=== PATIENT | male | born 1980 | race Caucasian/White ===

== ENCOUNTER → 2021-02-04 08:45 | Outpatient (CLI) | payer OTHER, SELFPAY ==
[2021-02-04 09:41] LABS: Absolute Lymphocyte Count 1.44 X10^3/uL (0.83-4.51); Absolute Neutrophil Count 2.6 X10^3/uL (2.0-7.7); Basophil# 0.02 X10^3/uL; Basophil% 0.4 % (0-1); Eosinophil# 0.12 X10^3/uL; Eosinophils% 2.6 % (0-5); Hematocrit 48.3 % (40-54); Lymphocyte # 1.44 X10^3/ul (0.83-4.51); Lymphocyte % 30.7 % (19-41); Mean Corp Hgb Conc 33.1 g/dL (32-36); Mean Corpuscular Hgb 31.6 pg (27.0-32.0); Mean Corpuscular Volume 95.5 fL (80-94); Mean Platelet Vol. 11.4 fl (6.2-12.0); Monocyte# 0.52 X10^3/uL; Monocyte% 11.1 % (0-10); NRBC Flagged by Analyzer 0 % (0-5); Neutrophil # 2.59 X10^3/uL (2.7-7.7); Neutrophil % 55.2 % (47-70); Platelet Count 179 K/mm3 (150-450); RBC Distribution Width CV 12.8 % (11.6-14.6); RBC Distribution Width SD 45.1 fl (35.1-43.9); Red Blood Count 5.06 M/mm3 (4.6-6.2); White Blood Count 4.7 K/mm3 (4.4-11.0)
[2021-02-04 13:29] LABS: ALB/GLOB Ratio 0.9 RATIO (0.9-2.4); AST(SGOT) 34 U/L (15-37); Alanine Aminotransfer ALT/SGPT 65 U/L (16-61); Albumin, Serum 3.7 g/dL (3.2-5.0); Alkaline Phosphatase 84 U/L (45-117); Anion Gap 7 (5-15); BUN 34 mg/dL (7-18); BUN/Creat Ratio 28.1 RATIO (10-20); Calcium,Total 9.1 mg/dL (8.5-10.1); Chloride 101 mmol/L (98-107); Cholesterol 152 mg/dL (200); Creatinine, Serum 1.21 mg/dL (0.70-1.30); EST Glomerular Filtration Rate 70 mL/min (>60); Est Glom Filt Rate - Afr Amer 85 mL/min (>60); Estradiol 46.5 pg/mL; Glucose 80 mg/dL (74-106); High Density Lipoprotein 61 mg/dL; PSA,Total- Diagnostic 0.47 ng/mL (0.0-4.0); Potassium 4.2 mmol/L (3.5-5.1); Protein, Total 7.7 g/dL (6.4-8.2); Sodium Level 137 mmol/L (136-145); Thyroid Stim Hormone (TSH) 0.93 uIU/mL (0.358-3.74); Triglycerides 64 mg/dL; Very Low Density Lipoprotein 13 mg/dL (5-40)
== END ==
DX: Z00.00 Encounter for general adult medical examination without abnormal findings (principal)
CPT/HCPCS: 80053; 80061; 82670; 84153; 84402; 84403; 84443; 85025

== ENCOUNTER → 2021-08-06 | Outpatient (CLI) | payer OTHER, SELFPAY ==
[2021-08-06 10:11] LABS: Absolute Lymphocyte Count 1.31 X10^3/uL (0.83-4.51); Absolute Neutrophil Count 1.9 X10^3/uL (2.0-7.7); Basophil# 0.01 X10^3/uL; Basophil% 0.3 % (0-1); Eosinophil# 0.07 X10^3/uL; Eosinophils% 1.9 % (0-5); Hematocrit 46.1 % (40-54); Hemoglobin 15.8 g/dL (13.0-16.5); Lymphocyte # 1.31 X10^3/ul (0.83-4.51); Lymphocyte % 35.8 % (19-41); Mean Corp Hgb Conc 34.3 g/dL (32-36); Mean Corpuscular Volume 93.3 fL (80-94); Mean Platelet Vol. 10.3 fl (6.2-12.0); Monocyte# 0.39 X10^3/uL; Monocyte% 10.7 % (0-10); NRBC Flagged by Analyzer 0 % (0-5); Neutrophil # 1.87 X10^3/uL (2.7-7.7); Platelet Count 172 K/mm3 (150-450); RBC Distribution Width CV 11.6 % (11.6-14.6); RBC Distribution Width SD 39.8 fl (35.1-43.9); Red Blood Count 4.94 M/mm3 (4.6-6.2); White Blood Count 3.7 K/mm3 (4.4-11.0)
[2021-08-06 10:41] LABS: AST(SGOT) 26 U/L (15-37); Alanine Aminotransfer ALT/SGPT 47 U/L (16-61); Albumin, Serum 3.8 g/dL (3.2-5.0); Alkaline Phosphatase 65 U/L (45-117); Anion Gap 3 (5-15); BUN 22 mg/dL (7-18); BUN/Creat Ratio 16.5 RATIO (10-20); Calcium,Total 9.3 mg/dL (8.5-10.1); Chloride 102 mmol/L (98-107); Cholesterol 160 mg/dL (200); Creatinine, Serum 1.33 mg/dL (0.70-1.30); EST Glomerular Filtration Rate 63 mL/min (>60); Est Glom Filt Rate - Afr Amer 76 mL/min (>60); Estradiol 29.7 pg/mL; Globulin 3.9 g/dL (2.2-4.2); Glucose 97 mg/dL (74-106); High Density Lipoprotein 67 mg/dL; Potassium 4.2 mmol/L (3.5-5.1); Protein, Total 7.7 g/dL (6.4-8.2); Sodium Level 136 mmol/L (136-145); Thyroid Stim Hormone (TSH) 0.91 uIU/mL (0.358-3.74); Triglycerides 40 mg/dL; Very Low Density Lipoprotein 8 mg/dL (5-40)
[2021-08-08 20:40] LABS: Insulin Like Growth Factor 248 ng/mL (84-270)
== END | disposition home or self-care (01) ==
DX: Z00.00 Encounter for general adult medical examination without abnormal findings (principal)
CPT/HCPCS: 80053; 80061; 82670; 84153; 84305; 84403; 84443; 85025; G0103

== ENCOUNTER 2022-01-28 08:48 | Outpatient (CLI) | payer OTHER, SELFPAY ==
[2022-01-28 09:03] LABS: Absolute Lymphocyte Count 1.06 X10^3/uL (0.83-4.51); Absolute Neutrophil Count 3.5 X10^3/uL (2.0-7.7); Basophil# 0.02 X10^3/uL; Basophil% 0.4 % (0-1); Eosinophil# 0.05 X10^3/uL; Hematocrit 47.9 % (40-54); Hemoglobin 16.6 g/dL (13.0-16.5); Lymphocyte # 1.06 X10^3/ul (0.83-4.51); Lymphocyte % 20.9 % (19-41); Mean Corp Hgb Conc 34.7 g/dL (32-36); Mean Corpuscular Hgb 32.4 pg (27.0-32.0); Mean Corpuscular Volume 93.6 fL (80-94); Mean Platelet Vol. 10.9 fl (6.2-12.0); Monocyte# 0.42 X10^3/uL; Monocyte% 8.3 % (0-10); NRBC Flagged by Analyzer 0 % (0-5); Neutrophil # 3.52 X10^3/uL (2.7-7.7); Neutrophil % 69.4 % (47-70); Platelet Count 179 K/mm3 (150-450); RBC Distribution Width CV 11.9 % (11.6-14.6); RBC Distribution Width SD 41.4 fl (35.1-43.9); Red Blood Count 5.12 M/mm3 (4.6-6.2); White Blood Count 5.1 K/mm3 (4.4-11.0)
[2022-01-28 09:24] LABS: Vitamin D,25 Hydroxy 39.2 ng/mL
[2022-01-28 09:32] LABS: ALB/GLOB Ratio 0.9 RATIO (0.9-2.4); AST(SGOT) 28 U/L (15-37); Alanine Aminotransfer ALT/SGPT 44 U/L (16-61); Albumin, Serum 3.8 g/dL (3.2-5.0); Alkaline Phosphatase 70 U/L (45-117); Anion Gap 4 (5-15); BUN 23 mg/dL (7-18); BUN/Creat Ratio 18.3 RATIO (10-20); Calcium,Total 9.3 mg/dL (8.5-10.1); Chloride 103 mmol/L (98-107); Cholesterol 150 mg/dL (200); Creatinine, Serum 1.26 mg/dL (0.70-1.30); EST Glomerular Filtration Rate 67 mL/min (>60); Est Glom Filt Rate - Afr Amer 81 mL/min (>60); Estradiol 53.1 pg/mL; Globulin 4.4 g/dL (2.2-4.2); Glucose 99 mg/dL (74-106); High Density Lipoprotein 69 mg/dL; Potassium 4.2 mmol/L (3.5-5.1); Protein, Total 8.2 g/dL (6.4-8.2); Sodium Level 137 mmol/L (136-145); Thyroid Stim Hormone (TSH) 1.34 uIU/mL (0.358-3.74); Triglycerides 38 mg/dL; Very Low Density Lipoprotein 8 mg/dL (5-40)
[2022-02-04 14:13] LABS: Cotinine Screen Blood <1.0 ng/mL (.); Nicotine Blood <1.0 ng/mL (.)
[2022-02-04 14:37] LABS: Testosterone, % Free 2.62 % (1.50-4.20); Testosterone, Total > 1500 ng/dL (264-916)
== END 2022-01-28 23:59 | disposition home or self-care (01) ==
LOC: LABSPEC 08:52
DX: Z00.00 Encounter for general adult medical examination without abnormal findings (principal); R53.83 Other fatigue; R94.6 Abnormal results of thyroid function studies; R89.1 Abnormal level of hormones in specimens from other organs, systems and tissues
CPT/HCPCS: 80053; 80061; 80323; 82306; 82670; 84402; 84403; 84443; 85025

== ENCOUNTER → 2022-06-12 | Outpatient (CLI) | payer OTHER, SELFPAY ==
[2022-06-13 08:10] LABS: PSA, Free 0.22 ng/mL; PSA, Total Ultrasensitive 0.489 ng/mL (0.000-4.000)
== END | disposition home or self-care (01) ==
DX: Z12.5 Encounter for screening for malignant neoplasm of prostate (principal)
CPT/HCPCS: 84153; 84154

== ENCOUNTER → 2022-08-31 | Outpatient (CLI) | payer OTHER, SELFPAY ==
[2022-08-31 09:23] LABS: Hematocrit 48.7 % (40-54); Hemoglobin 16.4 g/dL (13.0-16.5)
[2022-08-31 10:06] LABS: AST(SGOT) 170 U/L (15-37); Alanine Aminotransfer ALT/SGPT 78 U/L (16-61); Albumin, Serum 3.9 g/dL (3.2-5.0); Alkaline Phosphatase 73 U/L (45-117); Anion Gap 4 (5-15); BUN 22 mg/dL (7-18); BUN/Creat Ratio 16.5 RATIO (10-20); Calcium,Total 9.2 mg/dL (8.5-10.1); Chloride 103 mmol/L (98-107); Cholesterol 158 mg/dL (200); Creatinine, Serum 1.33 mg/dL (0.70-1.30); EST Glomerular Filtration Rate 63 mL/min (>60); Est Glom Filt Rate - Afr Amer 76 mL/min (>60); Estradiol 64.6 pg/mL; Follicle Stimulating Hormone < 0.2 mIU/mL; Glucose 99 mg/dL (74-106); High Density Lipoprotein 64 mg/dL; Luteinizing Hormone < 0.2 mIU/mL; PSA,Total - Annual Screen 0.48 ng/mL (0.00-4.00); Protein, Total 7.9 g/dL (6.4-8.2); Sodium Level 136 mmol/L (136-145); Thyroid Stim Hormone (TSH) 0.79 uIU/mL (0.358-3.74); Triglycerides 48 mg/dL; Very Low Density Lipoprotein 10 mg/dL (5-40)
[2022-09-05 11:08] LABS: Sex Hormone-binding Globulin 59.6 nmol/L (16.5-55.9); Testosterone, % Free 2.33 % (1.50-4.20); Testosterone, Total > 1500 ng/dL (264-916)
== END | disposition home or self-care (01) ==
PROVIDERS: Visit Provider Registered Nurse
DX: Z00.00 Encounter for general adult medical examination without abnormal findings (principal); R53.83 Other fatigue; Z12.5 Encounter for screening for malignant neoplasm of prostate; R68.82 Decreased libido; R63.5 Abnormal weight gain; R39.16 Straining to void; E29.1 Testicular hypofunction
CPT/HCPCS: 80053; 80061; 82627; 82670; 83001; 83002; 84146; 84153; 84270; 84402; 84403; 84443; 85014; 85018; 82626; G0103

== ENCOUNTER → 2024-01-19 | Outpatient (CLI) | payer OTHER, SELFPAY ==
[2024-01-19 09:35] LABS: Hematocrit 51.3 % (40-54); Hemoglobin 17.1 g/dL (13.0-16.5)
[2024-01-19 10:03] LABS: AST(SGOT) 22 U/L (15-37); Alanine Aminotransfer ALT/SGPT 28 U/L (16-61); Albumin, Serum 3.9 g/dL (3.2-5.0); Alkaline Phosphatase 67 U/L (45-117); Anion Gap 5 (5-15); BUN 26 mg/dL (7-18); BUN/Creat Ratio 19.3 RATIO (10-20); Calcium,Total 9.5 mg/dL (8.5-10.1); Chloride 101 mmol/L (98-107); Cholesterol 164 mg/dL (200); Creatinine, Serum 1.35 mg/dL (0.70-1.30); EST Glomerular Filtration Rate 61 mL/min (>60); Est Glom Filt Rate - Afr Amer 74 mL/min (>60); Estradiol 34.2 pg/mL; Follicle Stimulating Hormone < 0.2 mIU/mL; Globulin 4.1 g/dL (2.2-4.2); Glucose 49 mg/dL (74-106); High Density Lipoprotein 62 mg/dL; Luteinizing Hormone < 0.2 mIU/mL; PSA,Total- Diagnostic 0.63 ng/mL (0.0-4.0); Potassium 4.2 mmol/L (3.5-5.1); Sodium Level 136 mmol/L (136-145); Triglycerides 40 mg/dL; Very Low Density Lipoprotein 8 mg/dL (5-40)
[2024-01-25 09:09] LABS: PROLACTIN 10.5 ng/mL (3.9-22.7); Sex Hormone-binding Globulin 49.9 nmol/L (16.5-55.9); Testosterone, % Free 5.99 % (1.50-4.20); Testosterone, Free >89.85 ng/dL (5.00-21.00); Testosterone, Total > 1500 ng/dL (264-916)
== END | disposition home or self-care (01) ==
LOC: LABSPEC 09:20
PROVIDERS: Referring Provider Registered Nurse; Visit Provider Registered Nurse
DX: E29.1 Testicular hypofunction (principal); R53.83 Other fatigue; Z12.5 Encounter for screening for malignant neoplasm of prostate; R68.82 Decreased libido; R63.5 Abnormal weight gain; R39.16 Straining to void; R35.0 Frequency of micturition
CPT/HCPCS: 80053; 80061; 82627; 82670; 83001; 83002; 84146; 84153; 84270; 84402; 84403; 84443; 85014; 85018; 82626

== ENCOUNTER → 2024-07-20 | Outpatient (CLI) | payer OTHER, SELFPAY ==
[2024-07-20 09:32] LABS: Hemoglobin 17.2 g/dL (13.0-16.5)
[2024-07-20 09:44] LABS: Hemoglobin A1c 5.7 % (<=5.6)
[2024-07-20 09:59] LABS: ALB/GLOB Ratio 1.3 RATIO (0.9-2.4); AST(SGOT) 31 U/L (<=37); Alanine Aminotransfer ALT/SGPT 25 U/L (<=46); Albumin, Serum 4.4 g/dL (3.5-5.0); Alkaline Phosphatase 66 U/L (40-129); Anion Gap 12 (5-15); BUN 26 mg/dL (4-19); BUN/Creat Ratio 17.7 RATIO (10-20); Calcium,Total 9.5 mg/dL (7.6-11.0); Carbon Dioxide 26.1 mmol/L (21.0-32.0); Chloride 97 mmol/L (98-108); Cholesterol 169 mg/dL (<=200); Creatinine, Serum 1.47 mg/dL (0.70-1.20); EST Glomerular Filtration Rate 60 (>60); Estradiol 31.5 pg/mL; Globulin 3.3 g/dL (2.2-4.2); Glucose 70 mg/dL (70-99); High Density Lipoprotein 62 mg/dL; Low Density Lipoprotein Calc. 98 mg/dL; PSA,Total - Annual Screen 0.51 ng/mL (0.02-4.00); Protein, Total 7.7 g/dL (5.9-8.4); Sodium Level 135 mmol/L (133-145); Total Bilirubin 0.42 mg/dL (0.00-1.30); Triglycerides 45 mg/dL; Very Low Density Lipoprotein 9 mg/dL (5-40); Vitamin D,25 Hydroxy 36.5 ng/mL (30-100); cholesterol:hdl ratio screen 2.73
[2024-07-25 13:08] LABS: Sex Hormone-binding Globulin 51.3 nmol/L (16.5-55.9); Testosterone, % Free 3.07 % (1.50-4.20); Testosterone, Free >46.05 ng/dL (5.00-21.00); Testosterone, Total > 1500 ng/dL (264-916)
== END | disposition home or self-care (01) ==
LOC: LABSPEC 09:00
PROVIDERS: Referring Provider Registered Nurse; Visit Provider Registered Nurse
DX: E29.1 Testicular hypofunction (principal); R53.83 Other fatigue; R68.82 Decreased libido; E78.9 Disorder of lipoprotein metabolism, unspecified; R35.0 Frequency of micturition
CPT/HCPCS: 80053; 80061; 82306; 82627; 82670; 83036; 84153; 84270; 84402; 84403; 85014; 85018; 82626; G0103